=== PATIENT | female | born 1935 | race Caucasian/White ===

== ENCOUNTER 2016-11-18 11:07 | Emergency (ER) | payer MEDICARE, OTHER ==
[~2016-11-18 11:07] MED LIST: /WARF25TA PO; ACET50TA PO; ADVIL; ALKATAB17; ATENPOW PO; COUM2.5T11 PO; ESTRACE; HYDR12.55 PO; MULT1TAB8 PO; PERC5TAB6 PO; PERC7.5T12 PO; TUMS PO
[2016-11-18] MEDS ORDERED: ACETAMINOPHEN 325 MG TAB As Ordered ONE (12:10)
--- NOTE | 2016-11-18 13:26 | REP ---
CT CERVICAL SPINE WITHOUT CONTRAST: HISTORY: Head injury. COMPARISON: 05/10/2009. There is no acute fracture or subluxation. A disc bulge is present at the C2-3 level. Disc bulges with associated osteophyte formation are present at the C3-4 through C6-7 levels. There is minimal narrowing of the spinal canal. Uncinate process and/or facet hypertrophy are present at the C2-3 through C7-T1 levels. These findings produce minimal to mild narrowing of the neural foramina. The C2-3 through C7-T1 intervertebral discs are decreased in height. Vacuum phenomenon is present at the C6-7 level. These findings are consistent with disc degeneration. IMPRESSION: 1. There is no acute fracture or subluxation. 2. There is cervical spondylosis at the C2-3 through C7-T1 levels. Signed by Zack Almeida MD 11/18/2016 01:31 P
--- NOTE | 2016-11-18 13:34 | REP ---
CT HEAD WITHOUT CONTRAST: HISTORY: Head injury. COMPARISON: 05/10/2009 Areas of decreased attenuation are present in the periventricular white matter. This represents small muscle ischemic disease. There is no intraparenchymal hemorrhage infarct or midline shift. The ventricular system and cortical sulci are dilated consistent with mild volume loss. There is no extracerebral collection. A small isodense mass 1 cm in width is present arising from the left side of the falx in the left parasagittal frontal region. This represents a meningioma. There is no fracture. The visualized sinuses are clear. IMPRESSION: 1. Small vessel ischemic disease. 2. Mild volume loss. 3. Small 1 cm left frontal parasagittal meningioma. Signed by Zack Almeida MD 11/18/2016 01:36 P
--- NOTE | 2016-11-18 14:39 | EDDOCDS ---
Nurse's Notes [facility] Name: Irina Ireland Age: 81 yrs Sex: Female : 1935 Arrival Date: 11/18/2016 Time: 11:07 Bed PR1 / Private MD: Jennifer Pendleton Diagnosis: Abrasion of scalp;Abnormal findings on diagnostic imaging of other body structures-MENINGIOMA;Contusion of unspecified knee-BILATERAL Presentation: 11/18 11:13 Presenting complaint: Patient states: feel at PAULINA kristin today in the bathroom. no LOC. srm bilateral knee pain and hit head hit the floor. neck hurts. headache. no n/v/d NOT on blood thiners. Adult Sepsis Screening: The patient does not have new or worsening altered mentation. Patient's respiratory rate is less than 22. Systolic blood pressure is greater than 100. Patient has a qSOFA score of 0- Negative Sepsis Screen. Suicide/Homicide risk assessment- the patient denies having any suicidal and/or homicidal ideations and does not present with any other emotional, behavioral or mental health complaints. Status: Patient is not a supervisor contact and service clerks or dependent. Transition of care: patient was not received from another setting of care. 11:13 Acuity: BEAN Level 3 srm 11:13 Method Of Arrival: Walkin/Carried/Asstd srm Triage Assessment: 11:16 General: Appears in no apparent distress, Behavior is appropriate for age, cooperative. srm Pain: Pain currently is 9 out of 10 on a pain scale. Derm: abrasion to left forehead. Musculoskeletal: cervical spine is tender. Reports bilateral knee pain and neck pain. Historical: - Allergies: no known allergies; - PMHx: Hypertension; neck pain; - PSHx: hip replacement; Cholecystectomy; right knee replacement; - Social history: Smoking status: Patient states former smoker of tobacco. No barriers to communication noted, The patient speaks fluent Mongolian, Speaks appropriately for age. - Family history: Not pertinent. - : The pt / caregiver states he / she is not on anticoagulants. Home medication list is obtained from the patient. - Exposure Risk Screening:: None identified. Screenin:35 Screening information is obtained from the patient. Fall risk: At risk due to age, The mlb1 following interventions are performed due to a positive Fall Risk Screen: Fall Risk is added to Special Handling on the patient Summary Screen. A Fall Risk Bracelet was applied to the patient. Side Rails are placed in the up position. A Call Frias is given with instruction to call for help when getting out of bed. Fall Alert bracelet is placed on the patient. Assistance ADL's: requires no assistance with activities of daily living. Abuse/DV Screen: The patient / caregiver reports he/she is: not in a situation that causes fear, pain or injury. Nutritional screening: No deficits noted. Advance Directives: There is no active DNR order. home support is adequate. Assessment: 14:36 General: Appears in no apparent distress, comfortable, Behavior is appropriate for age, mlb1 cooperative. Pain: Denies pain. Neurological: Level of Consciousness is awake, alert, Oriented to person, place, time, Speech is normal. Musculoskeletal: Range of motion intact in all extremities. Injury Description: Bruise sustained to forehead is purple. Vital Signs: 11:08 BP 151 / 93; Pulse 76; Resp 18 S; Temp 98.0; Pulse Ox 98% on R/A; Weight 81.65 kg (R); dd6 Height 5 ft. 2 in. (157.48 cm) (R); Pain 10/10; 14:21 BP 149 / 73; Pulse 66; Resp 18; Temp 97.5(O); Pulse Ox 98% on R/A; Pain 6/10; ct3 11:08 Body Mass Index 32.92 (81.65 kg, 157.48 cm) dd6 Vitals: 11:08 Log In Time: November 18, 2016 at 11:06. dd6 ED Course: 11:08 Patient visited by Deep Adames PCA. dd6 11:08 Jennifer Pendleton is Private Physician. dd6 11:08 Patient moved to Waiting dd6 11:09 Patient moved to Pre RCE dd6 11:15 Triage Initiated srm 11:17 Patient moved to Triage 3 srm 11:53 Glad[facility] dt4 11:53 Johanna Hensley MD is Attending Physician. dt4 11:53 Patient visited by Gladys Meng PA-C. dt4 12:14 Patient moved to TR1 ttb 12:29 Patient visited by Nubia Wilson PCA. ct3 13:03 Patient visited by Nubia Wilson PCA. ct3 13:46 Patient visited by Nubia Wilson PCA. ct3 14:08 CT Spine,Cervical W/o Contrast Returned. EDMS 14:08 CT Head Without Contrast Returned. EDMS 14:13 Jose Manuel Velazco is Referral Physician. dt4 14:15 Patient moved to PR / ct3 14:21 Patient visited by Nubia Wilson PCA. ct3 14:36 No IV's were initiated during this patient's visit. No procedures done that require mlb1 assistance. 14:37 The patient / caregiver is instructed regarding the plan of care and ED course. mlb1 Administered Medications: 12:13 Drug: Acetaminophen 650 mg [acetaminophen 325 mg tablet (2 tabs)] Route: PO; ttb Order Results: Radiology Order: CT Head Without Contrast Test: CT Head Without Contrast REASON FOR EXAMINATION: HEAD INJURY; CT HEAD WITHOUT CONTRAST:; ; HISTORY: Head injury.; ; COMPARISON: 05/10/2009; ; Areas of decreased attenuation are present in the periventricular white matter.; This represents small muscle ischemic disease. There is no intraparenchymal; hemorrhage infarct or midline shift. The ventricular system and cortical sulci; are dilated consistent with mild volume loss. There is no extracerebral; collection. A small isodense mass 1 cm in width is present arising from the left; side of the falx in the left parasagittal frontal region. This represents a; meningioma. There is no fracture. The visualized sinuses are clear.; ; IMPRESSION:; ; 1. Small vessel ischemic disease.; ; 2. Mild volume loss.; ; 3. Small 1 cm left frontal parasagittal meningioma.; ; ; Signed by; Zack Almeida MD 11/18/2016 01:36 P; Radiology Order: CT Spine,Cervical W/o Contrast Test: CT Spine,Cervical W/o Contrast REASON FOR EXAMINATION: HEAD INJURY, NECK PAIN, PRIOR C2 FX; CT CERVICAL SPINE WITHOUT CONTRAST:; ; HISTORY: Head injury.; ; COMPARISON: 05/10/2009.; ; There is no acute fracture or subluxation. A disc bulge is present at the C2-3; level. Disc bulges with associated osteophyte formation are present at the C3-4; through C6-7 levels. There is minimal narrowing of the spinal canal. Uncinate; process and/or facet hypertrophy are present at the C2-3 through C7-T1 levels.; These findings produce minimal to mild narrowing of the neural foramina. The; C2-3 through C7-T1 intervertebral discs are decreased in height. Vacuum; phenomenon is present at the C6-7 level. These findings are consistent with disc; degeneration.; ; IMPRESSION:; ; 1. There is no acute fracture or subluxation.; ; 2. There is cervical spondylosis at the C2-3 through C7-T1 levels.; ; ; Signed by; Zack Almeida MD 11/18/2016 01:31 P; Outcome: 14:14 Discharge ordered by Provider. dt4 14:37 Discharge Assessment: Patient awake, alert and oriented x 3. No cognitive and/or mlb1 functional deficits noted. Patient verbalized understanding of disposition instructions. patient administered narcotics - no. The following High Risk Discharge criteria are identified: None. Discharged to home ambulatory. Condition: good. Discharge instructions given to patient, Instructed on discharge instructions, follow up and referral plans. Demonstrated understanding of instructions, Pt was receptive of discharge instructions/ teaching. CT Study completed. Property sent home with patient. 14:37 Patient left the ED. mlb1 Signatures: Dispatcher [employer] EDMS Darshana Lawson, RN Alex Tenorio RN RN mlb1 Deep Adames, ANALOG IC DESIGN ARCHITECT ANALOG IC DESIGN ARCHITECT dd6 Nubia Wilson, ANALOG IC DESIGN ARCHITECT ANALOG IC DESIGN ARCHITECT ct3 Juliane Patel RN RN ttb Tschudi, Diane, PALaurelC PA-C dt4 MTDD
--- NOTE | 2016-11-18 14:39 | EDDOCDS ---
Physician Documentation [facility] Name: Irina Ireland Age: 81 yrs Sex: Female : 1935 Arrival Date: 11/18/2016 Time: 11:07 Bed PR Private MD: Jennifer Pendleton Disposition: 11/18/16 14:14 Discharged to Home/Self Care. Impression: Abrasion of scalp, Abnormal findings on diagnostic imaging of other body structures - MENINGIOMA, Contusion of unspecified knee - BILATERAL. - Condition is Stable. - Discharge Instructions: Abrasion, Contusion, Fall Prevention and Home Safety. - Medication Reconciliation, Local Pharmacy Hours form. - Follow up: Emergency Department; When: As needed; Reason: Worsening of conditions. Follow up: Jose Manuel Martinez; When: Call to arrange an appointment; Reason: Wound/Symptom Recheck, Further diagnostic work-up, Recheck today's complaints, Continuance of care, To establish care. - Problem is new. - Symptoms are unchanged. - Notes: THERE WAS A 1CM MENINGIOMA ON YOUR CT SCAN OF YOUR HEAD TODAY. PLEASE CALL DR. MARTINEZ'S OFFICE TO SCHEDULE AN APPOINTNENT TO BE SEEN BY HIM AN OUTPATIENT FOR THIS FINDING. Historical: - Allergies: no known allergies; - PMHx: Hypertension; neck pain; - PSHx: hip replacement; Cholecystectomy; right knee replacement; - Social history: Smoking status: Patient states former smoker of tobacco. No barriers to communication noted, The patient speaks fluent Macanese, Speaks appropriately for age. - Family history: Not pertinent. - : The pt / caregiver states he / she is not on anticoagulants. Home medication list is obtained from the patient. - Exposure Risk Screening:: None identified. Vital Signs: 11/18 11:08 BP 151 / 93; Pulse 76; Resp 18 S; Temp 98.0; Pulse Ox 98% on R/A; Weight 81.65 kg / dd6 180.01 lbs (R); Height 5 ft. 2 in. (157.48 cm) (R); Pain 10/10; 14:21 BP 149 / 73; Pulse 66; Resp 18; Temp 97.5(O); Pulse Ox 98% on R/A; Pain 6/10; ct3 11:08 Body Mass Index 32.92 (81.65 kg, 157.48 cm) dd6 MDM: 12:09 Acetaminophen Tablet 650 mg PO once ordered. dt4 12:09 Knee, Complete Ordered. EDMS 12:09 CT Head Without Contrast Ordered. EDMS 12:13 CT Spine,Cervical W/o Contrast Ordered. EDMS 14:11 Financial registration complete. lg Administered Medications: 12:13 Drug: Acetaminophen 650 mg [acetaminophen 325 mg tablet (2 tabs)] Route: PO; ttb Signatures: Dispatcher [employer] EDMS Darshana Lawson, RN RN Pipe Costello, Reg Reg Alex Cornejo RN RN mlb1 Gladys Meng, LAUREN PAWaqar dt4 Juliane Patel RN ttb The chart was reviewed and I authenticate all verbal orders and agree with the evaluation and treatment provided.Corrections: (The following items were deleted from the chart) 12:17 12:10 CT Neck without contrast+CT ordered. EDMS EDMS MTDD
--- NOTE | 2016-11-18 14:59 | REP ---
BILATERAL KNEE, NINE VIEWS: HISTORY: Fall. RIGHT KNEE, FIVE VIEWS: COMPARISON: 12/13/2013 The patient is status post right knee replacement. There is no acute fracture or dislocation. Dystrophic calcification is present posterior to the knee joint space. IMPRESSION: The patient is status post right total knee replacement. LEFT KNEE, FIVE VIEWS: There is no acute fracture or dislocation. There is narrowing of the joint spaces. Osteophytes are present on the femur, patella and tibia. Calcification is present posterior to the knee joint space. This represents ligamentous or tendon calcification. IMPRESSION: Degenerative change as described above. Signed by Zack Almeida MD 11/18/2016 03:04 P
--- NOTE | 2016-11-20 15:38 | EDDOCDS ---
Physician Documentation [facility] Name: Irina Ireland Age: 81 yrs Sex: Female : 1935 Arrival Date: 11/18/2016 Time: 11:07 Bed PR Private MD: Jennifer Pendleton Disposition: 11/18/16 14:14 Discharged to Home/Self Care. Impression: Abrasion of scalp, Abnormal findings on diagnostic imaging of other body structures - MENINGIOMA, Contusion of unspecified knee - BILATERAL. - Condition is Stable. - Discharge Instructions: Abrasion, Contusion, Fall Prevention and Home Safety. - Medication Reconciliation, Local Pharmacy Hours form. - Follow up: Emergency Department; When: As needed; Reason: Worsening of conditions. Follow up: Jose Manuel Martinez; When: Call to arrange an appointment; Reason: Wound/Symptom Recheck, Further diagnostic work-up, Recheck today's complaints, Continuance of care, To establish care. - Problem is new. - Symptoms are unchanged. - Notes: THERE WAS A 1CM MENINGIOMA ON YOUR CT SCAN OF YOUR HEAD TODAY. PLEASE CALL DR. MARTINEZ'S OFFICE TO SCHEDULE AN APPOINTNENT TO BE SEEN BY HIM AN OUTPATIENT FOR THIS FINDING. Historical: - Allergies: no known allergies; - PMHx: Hypertension; neck pain; - PSHx: hip replacement; Cholecystectomy; right knee replacement; - Social history: Smoking status: Patient states former smoker of tobacco. No barriers to communication noted, The patient speaks fluent Bermudian, Speaks appropriately for age. - Family history: Not pertinent. - : The pt / caregiver states he / she is not on anticoagulants. Home medication list is obtained from the patient. - Exposure Risk Screening:: None identified. Vital Signs: 11/18 11:08 BP 151 / 93; Pulse 76; Resp 18 S; Temp 98.0; Pulse Ox 98% on R/A; Weight 81.65 kg / dd6 180.01 lbs (R); Height 5 ft. 2 in. (157.48 cm) (R); Pain 10/10; 14:21 BP 149 / 73; Pulse 66; Resp 18; Temp 97.5(O); Pulse Ox 98% on R/A; Pain 6/10; ct3 11:08 Body Mass Index 32.92 (81.65 kg, 157.48 cm) dd6 MDM: 12:09 Acetaminophen Tablet 650 mg PO once ordered. dt4 12:09 Knee, Complete Ordered. EDMS 12:09 CT Head Without Contrast Ordered. EDMS 12:13 CT Spine,Cervical W/o Contrast Ordered. EDMS 14:11 Financial registration complete. lg 11/20 08:38 T-Sheet-- Draft Copy was scanned into [employer] and attached to record. gb 11: [facility] Payment Agreement was scanned into [employer] and attached to record. lg Administered Medications: 11/18 12:13 Drug: Acetaminophen 650 mg [acetaminophen 325 mg tablet (2 tabs)] Route: PO; ttb Signatures: Dispatcher [employer] EDMS Darshana Lawson, RN RN [facility] Esther Centeno, Reg Reg gb Pipe Becker, Reg Reg lg Alex Cornejo RN RN mlb1 Gladys Meng, PAWaqar PAWaqar dt4 Juliane Patel RN ttb The chart was reviewed and I authenticate all verbal orders and agree with the evaluation and treatment provided.Corrections: (The following items were deleted from the chart) 12:17 12:10 CT Neck without contrast+CT ordered. EDMS EDMS Attachments: 11/20 08:38 T-Sheet-- Draft Copy gb 11:02 [facility] Payment Agreement lg Chart Complete MTDD
--- NOTE | 2016-11-20 15:38 | EDDOCDS ---
Nurse's Notes [facility] Name: Irina Ireland Age: 81 yrs Sex: Female : 1935 Arrival Date: 11/18/2016 Time: 11:07 Bed PR1 / Private MD: Jennifer Pendleton Diagnosis: Abrasion of scalp;Abnormal findings on diagnostic imaging of other body structures-MENINGIOMA;Contusion of unspecified knee-BILATERAL Presentation: 11/18 11:13 Presenting complaint: Patient states: feel at PAULINA kristin today in the bathroom. no LOC. srm bilateral knee pain and hit head hit the floor. neck hurts. headache. no n/v/d NOT on blood thiners. Adult Sepsis Screening: The patient does not have new or worsening altered mentation. Patient's respiratory rate is less than 22. Systolic blood pressure is greater than 100. Patient has a qSOFA score of 0- Negative Sepsis Screen. Suicide/Homicide risk assessment- the patient denies having any suicidal and/or homicidal ideations and does not present with any other emotional, behavioral or mental health complaints. Status: Patient is not a direct service professional or dependent. Transition of care: patient was not received from another setting of care. 11:13 Acuity: BEAN Level 3 srm 11:13 Method Of Arrival: Walkin/Carried/Asstd srm Triage Assessment: 11:16 General: Appears in no apparent distress, Behavior is appropriate for age, cooperative. srm Pain: Pain currently is 9 out of 10 on a pain scale. Derm: abrasion to left forehead. Musculoskeletal: cervical spine is tender. Reports bilateral knee pain and neck pain. Historical: - Allergies: no known allergies; - PMHx: Hypertension; neck pain; - PSHx: hip replacement; Cholecystectomy; right knee replacement; - Social history: Smoking status: Patient states former smoker of tobacco. No barriers to communication noted, The patient speaks fluent Albanian, Speaks appropriately for age. - Family history: Not pertinent. - : The pt / caregiver states he / she is not on anticoagulants. Home medication list is obtained from the patient. - Exposure Risk Screening:: None identified. Screenin:35 Screening information is obtained from the patient. Fall risk: At risk due to age, The mlb1 following interventions are performed due to a positive Fall Risk Screen: Fall Risk is added to Special Handling on the patient Summary Screen. A Fall Risk Bracelet was applied to the patient. Side Rails are placed in the up position. A Call Frias is given with instruction to call for help when getting out of bed. Fall Alert bracelet is placed on the patient. Assistance ADL's: requires no assistance with activities of daily living. Abuse/DV Screen: The patient / caregiver reports he/she is: not in a situation that causes fear, pain or injury. Nutritional screening: No deficits noted. Advance Directives: There is no active DNR order. home support is adequate. Assessment: 14:36 General: Appears in no apparent distress, comfortable, Behavior is appropriate for age, mlb1 cooperative. Pain: Denies pain. Neurological: Level of Consciousness is awake, alert, Oriented to person, place, time, Speech is normal. Musculoskeletal: Range of motion intact in all extremities. Injury Description: Bruise sustained to forehead is purple. Vital Signs: 11:08 BP 151 / 93; Pulse 76; Resp 18 S; Temp 98.0; Pulse Ox 98% on R/A; Weight 81.65 kg (R); dd6 Height 5 ft. 2 in. (157.48 cm) (R); Pain 10/10; 14:21 BP 149 / 73; Pulse 66; Resp 18; Temp 97.5(O); Pulse Ox 98% on R/A; Pain 6/10; ct3 11:08 Body Mass Index 32.92 (81.65 kg, 157.48 cm) dd6 Vitals: 11:08 Log In Time: November 18, 2016 at 11:06. dd6 ED Course: 11:08 Patient visited by Deep Adames PCA. dd6 11:08 Jennifer Pendleton is Private Physician. dd6 11:08 Patient moved to Waiting dd6 11:09 Patient moved to Pre RCE dd6 11:15 Triage Initiated srm 11:17 Patient moved to Triage 3 srm 11:53 [facility] Meng [facility]. dt4 11:53 Johanna Hensley MD is Attending Physician. dt4 11:53 Patient visited by Gladys Meng PA-C. dt4 12:14 Patient moved to TR1 ttb 12:29 Patient visited by Nubia Wilson PCA. ct3 13:03 Patient visited by Nubia Wilson PCA. ct3 13:46 Patient visited by Nubia Wilson PCA. ct3 14:08 CT Spine,Cervical W/o Contrast Returned. EDMS 14:08 CT Head Without Contrast Returned. EDMS 14:13 Jose Manuel Velazco is Referral Physician. dt4 14:15 Patient moved to PR ct3 14:21 Patient visited by Nubia Wilson PCA. ct3 14:36 No IV's were initiated during this patient's visit. No procedures done that require mlb1 assistance. 14:37 The patient / caregiver is instructed regarding the plan of care and ED course. mlb1 15:44 Knee, Complete Returned. EDMS 11/20 08:38 T-Sheet-- Draft Copy was scanned into [employer] and attached to record. gb 11:02 [facility] Payment Agreement was scanned into [employer] and attached to record. lg Administered Medications: 11/18 12:13 Drug: Acetaminophen 650 mg [acetaminophen 325 mg tablet (2 tabs)] Route: PO; ttb Order Results: Radiology Order: Knee, Complete Test: Knee, Complete REASON FOR EXAMINATION: FALL ON BILAT KNEES; BILATERAL KNEE, NINE VIEWS:; ; HISTORY: Fall.; ; RIGHT KNEE, FIVE VIEWS:; ; COMPARISON: 12/13/2013; ; The patient is status post right knee replacement. There is no acute fracture or; dislocation. Dystrophic calcification is present posterior to the knee joint; space.; ; IMPRESSION:; ; The patient is status post right total knee replacement.; ; LEFT KNEE, FIVE VIEWS:; ; There is no acute fracture or dislocation. There is narrowing of the joint; spaces. Osteophytes are present on the femur, patella and tibia. Calcification; is present posterior to the knee joint space. This represents ligamentous or; tendon calcification.; ; IMPRESSION:; ; Degenerative change as described above.; ; ; Signed by; Zack Almeida MD 11/18/2016 03:04 P; Radiology Order: CT Head Without Contrast Test: CT Head Without Contrast REASON FOR EXAMINATION: HEAD INJURY; CT HEAD WITHOUT CONTRAST:; ; HISTORY: Head injury.; ; COMPARISON: 05/10/2009; ; Areas of decreased attenuation are present in the periventricular white matter.; This represents small muscle ischemic disease. There is no intraparenchymal; hemorrhage infarct or midline shift. The ventricular system and cortical sulci; are dilated consistent with mild volume loss. There is no extracerebral; collection. A small isodense mass 1 cm in width is present arising from the left; side of the falx in the left parasagittal frontal region. This represents a; meningioma. There is no fracture. The visualized sinuses are clear.; ; IMPRESSION:; ; 1. Small vessel ischemic disease.; ; 2. Mild volume loss.; ; 3. Small 1 cm left frontal parasagittal meningioma.; ; ; Signed by; Zack Almeida MD 11/18/2016 01:36 P; Radiology Order: CT Spine,Cervical W/o Contrast Test: CT Spine,Cervical W/o Contrast REASON FOR EXAMINATION: HEAD INJURY, NECK PAIN, PRIOR C2 FX; CT CERVICAL SPINE WITHOUT CONTRAST:; ; HISTORY: Head injury.; ; COMPARISON: 05/10/2009.; ; There is no acute fracture or subluxation. A disc bulge is present at the C2-3; level. Disc bulges with associated osteophyte formation are present at the C3-4; through C6-7 levels. There is minimal narrowing of the spinal canal. Uncinate; process and/or facet hypertrophy are present at the C2-3 through C7-T1 levels.; These findings produce minimal to mild narrowing of the neural foramina. The; C2-3 through C7-T1 intervertebral discs are decreased in height. Vacuum; phenomenon is present at the C6-7 level. These findings are consistent with disc; degeneration.; ; IMPRESSION:; ; 1. There is no acute fracture or subluxation.; ; 2. There is cervical spondylosis at the C2-3 through C7-T1 levels.; ; ; Signed by; Zack Almeida MD 11/18/2016 01:31 P; Outcome: 14:14 Discharge ordered by Provider. dt4 14:37 Discharge Assessment: Patient awake, alert and oriented x 3. No cognitive and/or mlb1 functional deficits noted. Patient verbalized understanding of disposition instructions. patient administered narcotics - no. The following High Risk Discharge criteria are identified: None. Discharged to home ambulatory. Condition: good. Discharge instructions given to patient, Instructed on discharge instructions, follow up and referral plans. Demonstrated understanding of instructions, Pt was receptive of discharge instructions/ teaching. CT Study completed. Property sent home with patient. 14:37 Patient left the ED. mlb1 Signatures: Dispatcher [employer] EDMS Darshana Lawson, RN RN [facility] Esther Centeno, Reg Reg gb Pipe Becker, Reg Reg lg Alex Cornejo RN RN mlb1 Zacarias Deep, DISTRICT SALES COORDINATOR DISTRICT SALES COORDINATOR dd6 Nubia Wilson, DISTRICT SALES COORDINATOR DISTRICT SALES COORDINATOR ct3 Juliane Patel RN RN ttb Gladys Meng, PA-C PA-C dt4 Chart Complete MTDD
--- NOTE | 2016-11-20 15:38 | EDDOCDS ---
Physician Documentation [facility] Name: Irina Ireland Age: 81 yrs Sex: Female : 1935 Arrival Date: 11/18/2016 Time: 11:07 Bed PR Private MD: Jennifer Pendleton Disposition: 11/18/16 14:14 Discharged to Home/Self Care. Impression: Abrasion of scalp, Abnormal findings on diagnostic imaging of other body structures - MENINGIOMA, Contusion of unspecified knee - BILATERAL. - Condition is Stable. - Discharge Instructions: Abrasion, Contusion, Fall Prevention and Home Safety. - Medication Reconciliation, Local Pharmacy Hours form. - Follow up: Emergency Department; When: As needed; Reason: Worsening of conditions. Follow up: Jose Manuel Martinez; When: Call to arrange an appointment; Reason: Wound/Symptom Recheck, Further diagnostic work-up, Recheck today's complaints, Continuance of care, To establish care. - Problem is new. - Symptoms are unchanged. - Notes: THERE WAS A 1CM MENINGIOMA ON YOUR CT SCAN OF YOUR HEAD TODAY. PLEASE CALL DR. MARTINEZ'S OFFICE TO SCHEDULE AN APPOINTNENT TO BE SEEN BY HIM AN OUTPATIENT FOR THIS FINDING. Historical: - Allergies: no known allergies; - PMHx: Hypertension; neck pain; - PSHx: hip replacement; Cholecystectomy; right knee replacement; - Social history: Smoking status: Patient states former smoker of tobacco. No barriers to communication noted, The patient speaks fluent Ukrainian, Speaks appropriately for age. - Family history: Not pertinent. - : The pt / caregiver states he / she is not on anticoagulants. Home medication list is obtained from the patient. - Exposure Risk Screening:: None identified. Vital Signs: 11/18 11:08 BP 151 / 93; Pulse 76; Resp 18 S; Temp 98.0; Pulse Ox 98% on R/A; Weight 81.65 kg / dd6 180.01 lbs (R); Height 5 ft. 2 in. (157.48 cm) (R); Pain 10/10; 14:21 BP 149 / 73; Pulse 66; Resp 18; Temp 97.5(O); Pulse Ox 98% on R/A; Pain 6/10; ct3 11:08 Body Mass Index 32.92 (81.65 kg, 157.48 cm) dd6 MDM: 12:09 Acetaminophen Tablet 650 mg PO once ordered. dt4 12:09 Knee, Complete Ordered. EDMS 12:09 CT Head Without Contrast Ordered. EDMS 12:13 CT Spine,Cervical W/o Contrast Ordered. EDMS 14:11 Financial registration complete. lg 11/20 08:38 T-Sheet-- Draft Copy was scanned into [employer] and attached to record. gb 11: [facility] Payment Agreement was scanned into [employer] and attached to record. lg Administered Medications: 11/18 12:13 Drug: Acetaminophen 650 mg [acetaminophen 325 mg tablet (2 tabs)] Route: PO; ttb Signatures: Dispatcher [employer] EDMS Darshana Lawson, RN RN [facility] Esther Centeno, Reg Reg gb Pipe Becker, Reg Reg lg Alex Cornejo RN RN mlb1 Gladys Meng, PAWaqar PAWaqar dt4 Juliane Patel RN ttb The chart was reviewed and I authenticate all verbal orders and agree with the evaluation and treatment provided.Corrections: (The following items were deleted from the chart) 12:17 12:10 CT Neck without contrast+CT ordered. EDMS EDMS Attachments: 11/20 08:38 T-Sheet-- Draft Copy gb 11:02 [facility] Payment Agreement lg Chart Complete MTDD
== END 2016-11-18 14:37 | disposition home or self-care (01) ==
LOC: M ED 11:07
DX: S80.01XA Contusion of right knee, initial encounter (principal); S80.02XA Contusion of left knee, initial encounter; S00.81XA Abrasion of other part of head, initial encounter; D32.9 Benign neoplasm of meninges, unspecified; I67.82 Cerebral ischemia; W19.XXXA Unspecified fall, initial encounter; Y92.512 Supermarket, store or market as the place of occurrence of the external cause; Y93.89 Activity, other specified; Y99.8 Other external cause status; I10 Essential (primary) hypertension; M54.2 Cervicalgia; Z96.649 Presence of unspecified artificial hip joint; Z96.651 Presence of right artificial knee joint; Z87.891 Personal history of nicotine dependence

== ENCOUNTER → 2016-11-24 | Outpatient (CLI) | payer MEDICARE, OTHER ==
[2016-11-24 09:15] LABS: BLOOD UREA NITROGEN 19 MG/DL (7-18); CREATININE FOR GFR 0.79 MG/DL (0.55-1.02); GLOMERULAR FILTRATION RATE > 60.0 (>39)
== END ==
LOC: M LAB 08:21
PROVIDERS: ATTEND Neurological Surgery
DX: Z01.818 Encounter for other preprocedural examination (principal)

== ENCOUNTER → 2016-12-07 | Outpatient (CLI) | payer MEDICARE, OTHER ==
--- NOTE | 2016-12-07 14:11 | REP ---
MR BRAIN WITHOUT AND WITH CONTRAST: HISTORY: Meningioma. Contrast: ProHance 16 mL. COMPARISON: CT 11/18/2016. Areas of increased signal intensity on T2-weighted imaged are present in the periventricular and subcortical white matter and rafael. This represents small vessel ischemic disease. There is no intraparenchymal hemorrhage, infarct, or midline shift. The ventricular system and cortical sulci are dilated consistent with mild volume loss. There is no extracerebral collection. An isointense mass with intense homogeneous enhancement is present arising from the falx in the left frontal parasagittal area. This represents a meningioma. The meningioma measures 1 cm in transverse by 1.3 cm in AP by 1.7 cm in cephalocaudal dimensions. There is very minimal mass effect on the adjacent left frontal lobe. The meningioma abuts the superior sagittal sinus. Minimal mucosal thickening is present in the left maxillary sinus. IMPRESSION: 1. Small vessel ischemic disease. 2. Mild volume loss. 3. Small 1 cm left frontal parasagittal meningioma. Signed by Zack Almeida MD 12/07/2016 02:23 P
== END ==
LOC: M RAD 10:52
PROVIDERS: ATTEND Neurological Surgery
DX: D32.9 Benign neoplasm of meninges, unspecified (principal)
CPT/HCPCS: 70553; A9576

== ENCOUNTER 2019-07-29 18:24 | Emergency (ER) | payer MEDICARE, OTHER ==
[~2019-07-29] VITALS: Ht 157.5 cm; Wt 72.7 kg
[~2019-07-29 18:24] MED LIST changes: -/WARF25TA PO; -ACET50TA PO; +COUM1TAB18 PO; -COUM2.5T11 PO; +COUM2.5T17 PO; +MAPA500T17 PO; +PERC5TAB12 PO; -PERC5TAB6 PO
--- NOTE | 2019-07-29 20:07 | REPVR ---
EXAM: CT Head Without Contrast EXAM DATE/TIME: 07/29/2019 6:33 PM CLINICAL HISTORY: 84 years old, female; Injury or trauma; Fall; Initial encounter; Concussion / head injury; Consciousness not specified; Additional info: Head inj, fall on stairs TECHNIQUE: Imaging protocol: Computed tomography of the head without contrast. Radiation optimization: All CT scans at this facility use at least one of these dose optimization techniques: automated exposure control; mA and/or kV adjustment per patient size (includes targeted exams where dose is matched to clinical indication); or iterative reconstruction. COMPARISON: CT Head without contrast 11/18/2016 12:16 PM FINDINGS: Brain: The brain demonstrates diffuse volume loss. There is white matter hypodensity most consistent with chronic small vessel ischemic change. No visible evolving territorial infarct. No hemorrhage. A left frontal parafalcine partially calcified meningioma is again demonstrated measuring approximately 1.7 cm compared to 1.2 cm previously. No evidence of adjacent brain parenchymal edema or intracranial mass effect. Ventricles: The ventricles appear enlarged in keeping with volume loss. Bones/joints: No acute calvarial fracture seen. Sinuses: Visualized sinuses are unremarkable. No fluid levels. Mastoid air cells: Visualized mastoid air cells are well aerated. Soft tissues: Left frontal scalp soft tissue swelling. IMPRESSION: 1. No acute intracranial abnormality seen. 2. A left frontal parafalcine meningioma appears mildly larger compared to the prior study. Electronically signed by: Nicole Zheng On 07/29/2019 20:06:47 PM
[2019-07-29] MEDS ORDERED: LIDOCAINE W/EPINEPHRINE 1% 20ML VIAL SC ONE (20:15)
--- NOTE | 2019-07-29 20:15 | REPVR ---
EXAM: CT Cervical Spine Without Contrast EXAM DATE/TIME: 07/29/2019 6:33 PM CLINICAL HISTORY: 84 years old, female; Injury or trauma; Fall; Initial encounter; Concussion /head injury; Additional info: Head inj, fall on stairs TECHNIQUE: Imaging protocol: Computed tomography images of the cervical spine without contrast. Radiation optimization: All CT scans at this facility use at least one of these dose optimization techniques: automated exposure control; mA and/or kV adjustment per patient size (includes targeted exams where dose is matched to clinical indication); or iterative reconstruction. COMPARISON: CT Spine,cervical w/o contrast 11/18/2016 12:16 PM FINDINGS: Vertebrae: Trace degenerative retrolisthesis of C3 on C4. No acute fracture seen. Discs/Spinal canal/Neural foramina: There is severe cervical facet arthropathy. Disc height loss and spondylosis with severe from C3-4 through C7-T1. Central spinal canal stenosis is moderate to severe at C3-4, progressed since prior. Relatively less significant central spinal canal stenosis elsewhere. There are multilevel foraminal stenoses due to uncovertebral and facet arthropathy. Soft tissues: Unremarkable. Thyroid: There is a 1.2 cm right thyroid nodule, stable. Lungs: New patchy mosaic attenuation pattern in the left consistent with air trapping versus pneumonitis or alveolar edema. IMPRESSION: 1. No cervical spine fracture seen. 2. Severe degenerative changes. Moderate to severe central spinal canal stenosis at C3-4, progressed since prior. 3. New patchy mosaic attenuation pattern in the left consistent with air trapping versus pneumonitis or alveolar edema. COMMENT: In patients aged 35 years and older with an incidental thyroid nodule equal to or greater than 1.[address], MRI or extrathyroidal US, further evaluation with dedicated thyroid US is recommended for patients with normal life expectancy and without comorbidities. For smaller nodules without suspicious features, no further evaluation or follow up is recommended. Electronically signed by: Nicole Zheng On 07/29/2019 20:14:37 PM
[2019-07-29 21:35] VITALS: BP 144/84
--- NOTE | 2019-07-30 09:20 | REP ---
REASON: Pain after trauma. The bones are demineralized. There is asymmetric intradigital joint space narrowing without marginal erosions. There is marginal osteophytosis. There is no yasemin periarticular osteopenia. Degenerative changes with joint space narrowing also seen involving the metacarpal phalangeal joints and throughout the wrist, particularly the 1st and 2nd carpal metacarpal joints. There is no evidence of an acute fracture. IMPRESSION: Chronic changes as described above. Electronically Signed by Andrei Laughlin DO 07/30/2019 09:24 A
--- NOTE | 2019-08-01 12:19 | ED PDOC ---
Post-Departure Follow-Up malcolm grifftih faxed formal report of ct c spine for fu He Villanueva MD Aug 01, 2019 12:19
== END 2019-07-29 21:36 | disposition home or self-care (01) ==
LOC: M ED 18:24
DX: S01.81XA Laceration without foreign body of other part of head, initial encounter (principal); S60.222A Contusion of left hand, initial encounter; W18.49XA Other slipping, tripping and stumbling without falling, initial encounter; Y92.099 Unspecified place in other non-institutional residence as the place of occurrence of the external cause; Y93.9 Activity, unspecified; Y99.9 Unspecified external cause status; I10 Essential (primary) hypertension; M54.2 Cervicalgia; F32.9 Major depressive disorder, single episode, unspecified; K21.9 Gastro-esophageal reflux disease without esophagitis; Z87.81 Personal history of (healed) traumatic fracture; Z79.01 Long term (current) use of anticoagulants; Z79.899 Other long term (current) drug therapy

== ENCOUNTER → 2020-01-19 | Outpatient (CLI) | payer MEDICARE, OTHER ==
--- NOTE | 2020-01-19 10:10 | REPMRS ---
Patient History The patient states she has not had a clinical breast exam in over a year. Patient is postmenopausal. Family history of unknown cancer at age 50 or over in mother. Benign stereotatic breast biopsy of the left breast. Took estrogen for 10 years. Took progesterone for 1 year. Digital Woman Screen Mammo: January 19, 2020 - Exam #: [id number] Bilateral CC and MLO view(s) were taken. Technologist: Kimberly Chris, Technologist Prior study comparison: August 10, 2014, bilateral bilat screen digital mammo, performed at [facility] ([facility]). July 27, 2013, bilateral bilat screen digital mammo, performed at [facility] ([facility]). July 26, 2012, bilateral bilat screen digital mammo, performed at [facility] ([facility]). FINDINGS: There are scattered fibroglandular densities. There are two small stable intramammary lymph nodes in the lateral aspect of the right breast unchanged. There has been no change in the appearance of the mammogram from the prior studies. There is a mild amount of scattered fibroglandular density which is fairly symmetric. There is no interval development of dominant mass, architectural distortion, or grouped microcalcification suggestive of malignancy. Assessment: BI-RADS/ACR category 2 mammogram. Benign Findings. Recommendation Routine screening mammogram of both breasts in 1 year (for women over age 40). This patient's Lifetime Breast Cancer Risk is estimated at 1.5 %. This mammogram was interpreted with the aid of an FDA-approved computer-aided dectection system. Electronically Signed By: Kana Zapien MD 01/19/20 3028
== END ==
LOC: M WHC 07:34
PROVIDERS: ATTEND Nurse Practitioner Family
DX: Z12.31 Encounter for screening mammogram for malignant neoplasm of breast (principal); Z80.9 Family history of malignant neoplasm, unspecified

== ENCOUNTER → 2021-02-27 | Outpatient (CLI) | payer MEDICARE, OTHER ==
--- NOTE | 2021-02-27 09:35 | DEXAMM ---
INDICATION: Z13.820 SCREENING FOR OSTEOPOROSIS. Bilateral hip replacement. COMPARISON: The most recent comparison DEXA study is from July 27, 2013 and the most remote is dated January 24, 2002.. TECHNIQUE: Bone density was measured using dual-energy x-ray absorptionmetry (DEXA). FINDINGS: AP SPINE L1-L4 BMD 1.317 g/cm2 Young Adult T-Score 1.1 Age Matched Z-Score 3.0. LT forearm:, radius total. BMD 0.473 g/cm2 Young Adult T-Score -3.3 Age Matched Z-Score -0.3. IMPRESSION: There is normal bone density of the spine. 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 The density of the spine has increased 5.7% since the initial exam on January 24, 2002. FOLLOW-UP: Recommendation for the next bone density exam: 2 years. <Electronically signed by Kana Zapien > 02/27/21 0932
--- NOTE | 2021-02-27 10:13 | REPMRS ---
Patient History The patient states she has not had a clinical breast exam in over a year. Family history of unknown cancer at age 50 or over in mother. Benign stereotatic breast biopsy of the left breast. Took estrogen for 10 years. Took progesterone for 1 year. Digital Woman Screen Mammo: February 27, 2021 - Exam #: [id number] Bilateral CC and MLO view(s) were taken. Technologist: Inga Renee, Technologist Prior study comparison: January 19, 2020, bilateral digital woman screen mammo performed at [facility]. January 07, 2018, bilateral digital mammo screening bilat, performed at [facility]. December 21, 2016, bilateral digital mammo screening bilat, performed at [facility]. FINDINGS: The breast tissue is almost entirely fat. The Volpara volumetric breast density category is: A. There has been no change in the appearance of the mammogram from the prior studies. There is no interval development of dominant mass, architectural distortion, or grouped microcalcification typical of malignancy. Assessment: BI-RADS/ACR category 1 mammogram. Negative Mammogram. Recommendation Routine screening mammogram of both breasts in 1 year (for women over age 40). This patient's [facility] Lifetime Breast Cancer RIsk is estimated at 1.0 %. This mammogram was interpreted with the aid of an FDA-approved computer-aided dectection system. Electronically Signed By: Kana Zapien MD 02/27/21 101
== END ==
LOC: M WHC 07:28
PROVIDERS: ATTEND Registered Nurse
DX: Z12.31 Encounter for screening mammogram for malignant neoplasm of breast (principal); Z79.818 Long term (current) use of other agents affecting estrogen receptors and estrogen levels; Z86.012 Personal history of benign carcinoid tumor; M81.0 Age-related osteoporosis without current pathological fracture

== ENCOUNTER → 2021-10-23 | Outpatient (REF) | LOC: M LABSMTC 09:06 | PROVIDERS: ATTEND Pediatrics | DX: Z20.822 Contact with and (suspected) exposure to COVID-19 (principal) ==

== ENCOUNTER → 2022-03-02 | Outpatient (CLI) | payer MEDICARE, OTHER | LOC: M WHC 07:45 | PROVIDERS: ATTEND Registered Nurse | DX: Z12.31 Encounter for screening mammogram for malignant neoplasm of breast (principal); Z80.9 Family history of malignant neoplasm, unspecified ==

== ENCOUNTER 2022-11-30 12:16 | Emergency (ER) | payer MEDICARE, OTHER ==
[~2022-11-30] VITALS: Ht 154.9 cm; Wt 144.5 kg
[2022-11-30 12:19] VITALS: BP 160/90
[2022-11-30] MEDS ORDERED: HYDR-3713 PO (14:38)
== END 2022-11-30 17:12 | disposition home or self-care (01) ==
LOC: M ED 12:16
DX: S52.501A Unspecified fracture of the lower end of right radius, initial encounter for closed fracture (principal); W19.XXXA Unspecified fall, initial encounter; Y92.009 Unspecified place in unspecified non-institutional (private) residence as the place of occurrence of the external cause; Z79.01 Long term (current) use of anticoagulants; Z79.899 Other long term (current) drug therapy

== ENCOUNTER → 2023-04-23 | Outpatient (CLI) | payer MEDICARE, OTHER ==
[~2023-04-23] MED LIST changes: +HYDR-3713 PO
== END ==
LOC: M WHC 04-06 09:46
PROVIDERS: ATTEND Internal Medicine
DX: Z12.31 Encounter for screening mammogram for malignant neoplasm of breast (principal)